=== PATIENT | female | born 1990 | race Two or more races ===

== ENCOUNTER 2022-06-09 09:46 | Outpatient (CLI) | payer OTHER ==
[~2022-06-09 09:46] MED LIST: CIPRO750 MG PO; MOTRIN800 MG PO; SEPTRA DS TABLE1 TAB PO; TRAMADOL HCL50 MG PO
== END 2022-06-09 09:48 | disposition home or self-care (01) ==
LOC: LAB 09:46
PROVIDERS: ATTEND Obstetrics & Gynecology
DX: Z20.828 Contact with and (suspected) exposure to other viral communicable diseases (principal); Z20.818 Contact with and (suspected) exposure to other bacterial communicable diseases

== ENCOUNTER 2024-05-28 19:00 | Emergency (ER) | payer OTHER ==
[~2024-05-28] VITALS: Ht 162.6 cm; Wt 59.0 kg
[2024-05-28] MEDS ORDERED: BUTALB/ACETAMINOPHEN/CAFFEINE 1 TAB TABLET PO ONE (20:45)
[2024-05-28] MEDS ORDERED: KETOROLAC TROMETHAMINE 60 MG VIAL IM ONE (20:45)
[2024-05-28 21:35] LABS: HEMATOCRIT 33.9 % (36.0-45.00); HEMOGLOBIN 11.6 g/dL (12.0-15.00); MEAN CELL VOLUME 86.6 fL (80.00-100.00); MEAN CORPUSCULAR HEMOGLOBIN 29.6 pg (27.00-32.0); MEAN CORPUSCULAR HGB CONC 34.2 g/dl (32.0-36.0); PLATELET COUNT 229 K/uL (150-450); RED BLOOD COUNT 3.92 M/uL (4.00-6.00); RED CELL DISTRIBUTION WIDTH 14.1 % (11.5-14.5)
[2024-05-28] MEDS ORDERED: DICLOFENAC SODI75 MG PO (21:57)
== END 2024-05-28 22:09 | disposition home or self-care (01) ==
LOC: ER 19:01
PROVIDERS: General Practice
DX: R51.9 Headache, unspecified (principal); Z20.822 Contact with and (suspected) exposure to COVID-19

== ENCOUNTER 2024-10-15 17:04 | Emergency (ER) | payer OTHER ==
[~2024-10-15] VITALS: Ht 160 cm; Wt 63.5 kg
[~2024-10-15 17:04] MED LIST changes: +DICLOFENAC SODI75 MG PO
[2024-10-15 23:13] LABS: HEMATOCRIT 34.8 % (36.0-45.00); HEMOGLOBIN 11.6 g/dL (12.0-15.00); MEAN CELL VOLUME 88.1 fL (80.00-100.00); MEAN CORPUSCULAR HEMOGLOBIN 29.4 pg (27.00-32.0); MEAN CORPUSCULAR HGB CONC 33.4 g/dl (32.0-36.0); PLATELET COUNT 263 K/uL (150-450); RED BLOOD COUNT 3.95 M/uL (4.00-6.00); RED CELL DISTRIBUTION WIDTH 13.3 % (11.5-14.5)
[2024-10-16] MEDS ORDERED: GILTUSS COUGH-118 M1 PO (00:47)
== END 2024-10-16 01:06 | disposition home or self-care (01) ==
LOC: ER 17:06
PROVIDERS: Preventive Medicine Public Health & General Preventive Medicine
DX: J06.9 Acute upper respiratory infection, unspecified (principal); Z88.8 Allergy status to other drugs, medicaments and biological substances; Z20.822 Contact with and (suspected) exposure to COVID-19